=== PATIENT | female | born 1990 | race Caucasian/White ===

== ENCOUNTER 2018-08-09 11:17 | Emergency (ER) | payer MEDICAID ==
[~2018-08-09] VITALS: Ht 175.3 cm; Wt 85.6 kg
[2018-08-09 11:22] VITALS: BP 128/73
[2018-08-09] MEDS ORDERED: DEXAMETHASONE 4 MG TABLET ONE (11:48)
[2018-08-09] MEDS ORDERED: DEXAMETHASONE 4 MG/ML, 1ML PO ONE (12:00)
[2018-08-09] MEDS ORDERED: DEXAMETHASONE 4 MG TABLET PO ONE (12:00)
== END 2018-08-09 11:54 | disposition home or self-care (01) ==
LOC: ED 11:48
DX: J03.00 Acute streptococcal tonsillitis, unspecified (principal); F41.1 Generalized anxiety disorder; F17.200 Nicotine dependence, unspecified, uncomplicated
CPT/HCPCS: 99283